=== PATIENT | female | born 1960 | race Hispanic/Latino ===

== ENCOUNTER 2017-12-18 07:29 | Day surgery (SDC) | payer BC ==
[~2017-12-18] VITALS: Ht 147.3 cm; Wt 68.3 kg
[~2017-12-18 07:29] MED LIST: SODIUM CHLORIDE 0.9% 1000ML 1,000 ML IV ONE
[2017-12-18 08:34] VITALS: BP 133/65
[2017-12-18] MEDS ORDERED: FENTANYL CITRATE PF 50 MCG/1 ML 2ML VIAL ONE (09:54)
[2017-12-18] MEDS ORDERED: PROPOFOL 10 MG/ML 20ML VIAL IV ONE ×2 (09:54)
[2017-12-18 10:13] VITALS: BP 101/53
== END 2017-12-18 10:46 | disposition home or self-care (01) ==
LOC: DAH 07:29 → ENDO 07:29
PROVIDERS: ATTEND Internal Medicine Gastroenterology
DX: Z12.11 Encounter for screening for malignant neoplasm of colon (principal); K57.30 Diverticulosis of large intestine without perforation or abscess without bleeding; Z68.30 Body mass index [BMI] 30.0-30.9, adult; K21.9 Gastro-esophageal reflux disease without esophagitis; Z98.890 Other specified postprocedural states
CPT/HCPCS: 45378; A4606; J2704 ×2; J3010; J7030

== ENCOUNTER 2025-08-22 10:16 | Emergency (ER) | payer BC ==
[~2025-08-22] VITALS: Ht 152.4 cm; Wt 68.9 kg
--- NOTE | 2025-08-22 10:24 | NUR ---
PATIENT IN ROOM
[2025-08-22] MEDS ORDERED: LIDOCAINE 1%-EPI 1:100,000 20 ML VIAL IJ ONE (10:30)
[2025-08-22 10:50] LABS: IMMATURE GRANULOCYTE ABSOLUTE 0.03 K/uL (0-1); NUCLEATED RED BLOOD CELLS 0.0 % (0.0-0.19); PLATELET COUNT (AUTO) 236 K/uL (130-400); RED BLOOD CELL COUNT(AUTO) 4.00 MIL/uL (4.00-5.50); RED CELL DISTRIBUTION WIDTH 12.9 % (11.0-15.5); WHITE BLOOD COUNT (AUTO) 12.1 K/uL (4.8-10.8)
[2025-08-22 11:05] LABS: CREATININE 0.7 mg/dL (0.5-1.0); GLOMERULAR FILTR. RATE CALC 95.0 mL/min (>90); GLUCOSE,RANDOM 120.0 mg/dL (70-105); SODIUM SERUM 135.0 mmol/L (136-145); UREA NITROGEN, BLOOD 8.0 mg/dL (7-18)
--- NOTE | 2025-08-22 11:46 | ERN ---
General Chief Complaint: Abscess Stated Complaint: BOIL UNDER ARMPIT Time Seen by MD: 10:23 Source: patient History of Present Illness Initial Comments Ms Ortega, 64 F came to the ED with abscess on her left axillary area since last Monday. She reports abscess on her left axillary area with started as a blister and then grew into pain so large mass, associated with fever and chills. Reports no other complaints. Currently not on any antibiotics and just takes Advil for the pain Timing/Duration: 1 week Severity: moderate Associated Symptoms: fever/chills Allergies: Coded Allergies: No Known Drug Allergies (Unverified Allergy, Unknown, 12/15/17) Home Meds No Active Prescriptions or Reported Meds Past Medical History Past Medical History: High Cholesterol, Hypertension Past Surgical History: Constitutional: (+) chills, (+) fever Skin: (+) abscess Review of Systems: was completed, & the rest were negative. Physical Exam General Appearance: (+) mild distress Orientation: (+) alert, (+) oriented x 3 Head/Face Trauma: No Eye: bilateral eye normal inspection Ear, Nose, Throat: (+) hearing grossly normal Neck: (+) normal inspection, (+) supple Respiratory: (+) chest non-tender, (+) lungs clear, (+) well ventilated Heart: (+) regular, (+) no gallop Vascular: (+) no edema Gastrointestinal: (+) soft, (+) non-tender Breast Exam: (+) deferred Genital: (+) deferred Rectal: (+) deferred Back: (+) normal inspection Extremities: (+) normal range of motion, (+) non-tender Neurologic/Psychiatric: (+) normal speech, (+) no motor defecits, (+) no sensory deficits Skin Comment Abscess on the left axillary area, warm, red, tender to touch, 5 x 5 cm with central punctum with pus Lymphatic: (+) axilla node tender (L) Results Laboratory and Microbiology Lab and Micro Result Laboratory Tests Test 08/22/25 10:35 White Blood Count 12.1 K/uL (4.8-10.8) H Red Blood Count 4.00 MIL/uL (4.00-5.50) Hemoglobin 12.5 g/dL (12.0-16.0) Hematocrit 37.2 % (36-48) Mean Corpuscular Volume 93.0 fL (79-99) Mean Corpuscular Hemoglobin 31.3 pg (27.0-33.0) Mean Corpuscular Hemoglobin Concent 33.6 g/dL (32.0-36.0) Red Cell Distribution Width 12.9 % (11.0-15.5) Platelet Count 236 K/uL (130-400) Mean Platelet Volume 10.5 fL (7.5-10.5) Immature Granulocyte % (Auto) 0.2 % (0-1) Neutrophils (%) (Auto) 70.2 % (40.0-77.0) Lymphocytes (%) (Auto) 21.8 % (21.0-51.0) Monocytes (%) (Auto) 6.4 % (3.0-13.0) Eosinophils (%) (Auto) 1.2 % (0.0-8.0) Basophils (%) (Auto) 0.2 % (0.0-5.0) Neutrophils # (Auto) 8.5 K/uL (1.8-7.7) H Lymphocytes # (Auto) 2.6 K/uL (1.0-4.8) Monocytes # (Auto) 0.8 K/uL (0.1-1.0) Eosinophils # (Auto) 0.14 K/uL (0.00-0.70) Basophils # (Auto) 0.02 K/uL (0.00-0.20) Absolute Immature Granulocyte (auto 0.03 K/uL (0-1) Nucleated Red Blood Cells 0.0 % (0.0-0.19) Sodium Level 135 mmol/L (136-145) L Potassium Level 3.4 mmol/L (3.5-5.1) L Chloride Level 102 mmol/L (101-111) Carbon Dioxide Level 29 mmol/L (21-32) Blood Urea Nitrogen 8 mg/dL (7-18) Creatinine 0.7 mg/dL (0.5-1.0) Glomerular Filtration Rate Calc 95 mL/min (>90) Random Glucose 120 mg/dL (70-105) H Total Calcium 8.7 mg/dL (8.5-10.1) MDM Differential diagnosis: Left axillary abscess The patient came to ER with severe left axillary pain associated with abscess since 3 days Rationale: This consult and ordered secondary to share decision-making include CBC, BMP Medications-per medication reconciliation Need for hospitalization: Patient does not meet criteria for hospitalization. Patient can be discharged home with oral antibiotics Need for emergency major/minor surgery: Yes, abscess was drained, packed and draped. There are no social concerns with this patient Prescription drug management Description we will include symptomatic care. The patient received IV morphine 4 mg once, Toradol 15 mg IM once for pain. She also received lidocaine 1% for local anesthesia. No allergies recorded I independently interpreted the test that were performed, results were reviewed by me and considered finding from Radiology ordered Medical management and examination interpretation discussions were had by me with other qualified health critical care physician as indicated for the patient's care ED Course Orders Procedure Category Date Status Time Cbc With Differential LAB 08/22/25 Complete 10:28 Basic Metabolic Panel LAB 08/22/25 Complete 10:28 Ketorolac PHA 08/22/25 Complete Tromethamine 15mg/Ml 10:30 Lidocaine 1%-Epi PHA 08/22/25 Complete 1:100,000 (Lidocaine 10:30 Morphine 4mg Syg PHA 08/22/25 Complete (Morphine 4mg Syg) 10:30 Vital Signs Date Time Temp Pulse Resp B/P (MAP) Pulse Ox O2 Delivery O2 Flow Rate FiO2 08/22/25 11:56 98.8 69 12 125/74 98 Room Air* 0 21 08/22/25 10:25 98.8 78 20 147/65 99 Room Air* 0 21 08/22/25 10:17 98.8 78 20 147/65 99 Room Air Incision and Drainage Incision and Drainage : Site: LEFT axilla Blade Size: 11 Progress Informed consent was obtained after discussion of risks, benefits, and alternatives, including bleeding, infection, pain, scarring, and need for repeat procedure. Patient verbalized understanding and agreed to proceed. A procedural time-out was performed confirming correct patient, procedure, and site Prepped with Betadine, Sterile drapes applied Local anesthesia achieved using 1% lidocaine, adequate analgesia confirmed prior to incision Procedure details: The left axillary area was prepped and draped in a sterile fashion. A 4 cm linear incision was made over the area of maximal fluctuance using a scalpel. Purulent material was expressed, and the abscess cavity was explored. Loculations were broken bluntly, allowing for further drainage. The cavity was irrigated as needed. The cavity was packed with sterile gauze dressing. Achieved hemostasis, no significant bleeding. No complications. The patient tolerated the procedure well without immediate complications. DX & DISP Disposition: Discharge Departure Impression: Primary Impression: Abscess of left axilla Critical Time: 60 minutes Condition: Improved Scripts No Active Prescriptions or Reported Meds Additional Instructions: You have an abscess on left axilla which was drained, packed and draped today in the ER. Take doxycycline as prescribed Take Tylenol or ibuprofen for pain and fever Consult primary care physician on next Monday as it was scheduled for further workup and management Your wound was left open so it could drain the left upper pus or blood. Change the dressing daily or if soaked Leave the packing until the drainage stops. It is okay even if the packing falls randomly. Remove the packing just by pulling it after the drain stops. Avoid shaving, deodorants, tight clothing or heavy arm activity on the left side until healed. Warm compresses 10-15 minutes 3-4 times daily to help drainage Visit ER immediately if you develop fever or chills, increasing redness/swelling or severe pain, past with foul odor or increasing drainage, no improvement or worsening after 48 hours. Referrals: SELF,REFERRAL (PCP) LYO GONZALEZ MD Aug 22, 2025 11:46
[2025-08-22 11:56] VITALS: BP 125/74; PULSE 69; RESP 12; TEMP 98.8; O2SAT 98
== END 2025-08-22 11:58 | disposition home or self-care (01) ==
LOC: EDH 10:16
DX: L02.412 Cutaneous abscess of left axilla (principal); I10 Essential (primary) hypertension; E78.00 Pure hypercholesterolemia, unspecified; Z98.890 Other specified postprocedural states
CPT/HCPCS: 99284; 96374; 10060; 80048; 85025; 36415; 96372; J1885; J2270